=== PATIENT | male | born 1980 | race Caucasian/White ===

== ENCOUNTER 2016-11-20 10:00 | Emergency (ER) | payer OTHER ==
--- NOTE | 2016-11-20 10:48 | EDPHY ---
HPI/HX/ROS/PE/MDM Narrative: CHIEF COMPLAINT: Allergic reaction to medication. HPI: The patient is a 36-year-old male, recently diagnosed with right hand cellulitis, who complains of possible allergic reaction to medication. The patient received IV vancomycin at [facility] in [place] and developed a diffuse red rash. The swelling improved, but ID switched him to Cephalexin. The patient has taken three pills since yesterday. This morning after taking the Cephalexin and Valtrex he developed a rash to both arms, worse on the right. He took two Benadryl which improved the rash. He denies shortness of breath, throat swelling, or chest pain. REVIEW OF SYSTEMS: Aside from elements discussed in the HPI, a comprehensive 10-point review of systems was reviewed and is negative. PMH: Left hand Cellulitis SOCIAL HISTORY: . Lives in [place]. PHYSICAL EXAM: General: Patient is alert, in no acute distress. ENT: Eyes are normal to inspection. ENT inspection normal. Neck: Normal inspection. Full range of motion. Respiratory: No respiratory distress. Breath sounds normal bilaterally. Cardiovascular: Regular rate and rhythm. Strong peripheral pulses. Abdomen: The abdomen is nontender to palpation. There are no peritoneal signs. There are normal bowel sounds. Back: Normal to inspection. No tenderness to palpation. Skin: Mild erythematous rash right to forearms only. No urticaria. Extremities: Normal appearance. Full range of motion. Neuro: Oriented x3. Normal motor function. Normal sensory function. ED Course: I was unable to obtain patient's medical records from [place] where his left hand cellulitis was cultured. Patient's rash has improved after Benadryl prior to arrival. Plan to discharge patient home with strict return precautions. MDM: This patient presents with an exanthematous rash isolated to his right forearm. The etiology of this is unclear. Given appearance and location, this is clearly not typical urticaria so I doubt this represents anaphylaxis. The patient has received IV cephalosporin without incident as an inpatient, and this is day 2-3 of oral Kelfex, which I think makes true cephalosporin allergy unlikely. I considered changing antibiotics, but a new antibiotic would represent the patient's fourth different antibiotic within a few days time frame , which has its own risks of adverse affect. I discussed this in detail with the patient and he is in agreement with the plan to proceed with current prescription and return if rash recurs. General Time Seen by Provider: 11/20/16 10:17 Initial Vital Signs: Initial Vital Signs Temperature (C) 36.7 C 11/20/16 10:01 Heart Rate 50 L 11/20/16 10:01 Respiratory Rate 16 11/20/16 10:01 Blood Pressure 133/85 H 11/20/16 10:01 O2 Sat (%) 100 11/20/16 10:01 O2 Delivery Mode Room Air Allergies/Adverse Reactions: Penicillins Allergy (Unknown, Verified 11/20/16 10:05) as kid Home Medications: Medication Instructions Recorded Cephalexin [Keflex (*)] 500 mg PO 11/20/16 valACYclovir [Valtrex (*)] 500 mg PO 11/20/16 Departure - Departure Disposition: Home, Routine, Self-Care Clinical Impression: Drug rash Condition: Good Instructions: Acute Rash (ED) Additional Instructions: Continue taking Keflex as directed. Return to the Emergency Department if the rash returns or if hand increases in swelling, redness, or pain. You have been referred to a primary care physician below, please followup as necessary. Referrals: Quintin Mora MD [place] [place] - As per Instructions Report Scribed for: Janusz Flores Report Scribed by: Mira Boggs Date of Report: 11/20/16 Time of Report: 10:48 Physician Review and Approval Statement: Portions of this note were transcribed by a medical lab technologist. I personally performed the history, physical exam, and medical decision-making; and confirmed the accuracy of the information in the transcribed note.
[2016-11-20 12:35] VITALS: BP 124/85; PULSE 62; RESP 18; TEMP 98.4; O2SAT 99
== END 2016-11-20 12:34 | disposition home or self-care (01) ==
DX: R21 Rash and other nonspecific skin eruption (principal); T36.8X5A Adverse effect of other systemic antibiotics, initial encounter

== ENCOUNTER 2017-02-13 20:50 | Emergency (ER) | payer OTHER ==
[2017-02-13 20:54] VITALS: BP 156/95; PULSE 69; RESP 16; TEMP 97.9; O2SAT 97
--- NOTE | 2017-02-13 21:51 | EDPHY ---
H & P Time Seen by Provider: 02/13/17 21:47 HPI/ROS: HPI: This is a 36-year-old male who presents with Chief Complaint: Forehead laceration Location: Forehead Quality: Laceration Duration: 30 minutes to 1 hour prior to arrival Signs and Symptoms: No headache, no loss of consciousness, no neck pain, no nausea, no vomiting Timing: Acute Severity: Moderate Context: Patient is that he has been drinking this evening, tripped and fell cement, cutting his forehead. Patient's last tetanus shot within the last 5 years. Modifying Factors: Direct pressure Comment: ROS: Eyes: No blurred vision Respiratory: No shortness of breath, no cough Cardiovascular: No chest pain Gastrointestinal: No nausea, no vomiting no diarrhea Genitourinary: No dysuria Extremities: No myalgias Neurologic: No weakness, no numbness Skin: No rashes Hematologic: No bruising, no bleeding MEDICAL/SURGICAL HISTORY: Generally healthy. Denies surgical history. Social History: Employed. Smoking Status: Never smoked Physical Exam: CONSTITUTIONAL: Appropriate in polite adult white male, awake and alert, no obvious distress HEENT: 1 inch deep c-shaped laceration to the right of midline of his forehead; sparing his eyebrow and medial canthus; superficial abrasion noted on the bridge of his nose; nares patent; no septal hematoma. normocephalic, PERRL, EOMI. Tympanic membranes clear. . Oropharynx clear, no exudate and moist pink mucosa. Airway patent. No lymphadenopathy. No meningismus. Cardiovascular: Normal S1/S2, regular rate, regular rhythm, without murmur rub or gallop. PULMONARY/CHEST: Symmetrical and nontender. Clear to auscultation bilaterally Good air movement. No accessory muscle usage. ABDOMEN: Soft, nondistended, nontender, no rebound, no guarding, no peritoneal signs, no masses or organomegaly. No CVAT. EXTREMITIES: 2/2 pulses, no deformities, no clubbing, no cyanosis or edema. NEUROLOGICAL: no focal neuro deficits. GCS 15. SKIN: Warm and dry, no erythema. no rash. Good capillary refill. Constitutional: Initial Vital Signs Temperature (C) 36.6 C 02/13/17 20:52 Heart Rate 69 02/13/17 20:52 Respiratory Rate 16 02/13/17 20:52 Blood Pressure 156/95 H 02/13/17 20:52 O2 Sat (%) 97 02/13/17 20:52 O2 Delivery Mode Room Air Allergies/Adverse Reactions: Penicillins Allergy (Unknown, Verified 11/20/16 10:05) as kid Sulfa (Sulfonamide Antibiotics) Allergy (Verified 02/13/17 20:52) Home Medications: Medication Instructions Recorded Cephalexin [Keflex (*)] 500 mg PO 11/20/16 valACYclovir [Valtrex (*)] 500 mg PO 11/20/16 Medical Decision Making Procedures: Procedure: Laceration repair. Verbal consent was obtained from the patient. The simple c-shaped deep laceration on the right side of forehead laceration was anesthetized in the usual fashion using 5 mL of 1% lidocaine with epinephrine. The wound was irrigated, draped and explored to its base with a gloved finger. There were no eyebrow or medial canthus structures involved. The wound was repaired with #3 subcuticular simple interrupted, 5-0 Vicryl. No foreign bodies were identified. Good hemostasis was achieved and patient tolerated procedure well. The procedure was performed by myself. ED Course/Re-evaluation: GCS 15. Patient politely declines CT imaging of his head and cervical spine. No loss of consciousness. I believe that this is appropriate not to image. Fall accidental in nature. Tetanus up-to-date. Laceration repair completed with absorbable simple interrupted subcuticular stitches Steri-Strips were placed to ensure good approximation. Written and verbal laceration/wound care instructions were given Differential Diagnosis: Differential diagnosis includes laceration, concussion, contusion. Departure - Departure Disposition: Home, Routine, Self-Care Clinical Impression: Laceration of forehead without complication Qualifiers: Encounter type: initial encounter Qualified Code(s): S01.81XA - Laceration without foreign body of other part of head, initial encounter Accidental fall Qualifiers: Encounter type: initial encounter Qualified Code(s): W19.XXXA - Unspecified fall, initial encounter Condition: Good Instructions: Care For Your Absorbable Stitches (ED), Facial Laceration (ED) Additional Instructions: Do not allow laceration or Steri-Strips to get wet times 48 hours. After 48 hours, may wash with clean soap and water but then pat Steri-Strips dry after bathing. Allow Steri-Strips to fall off on their own in 7-10 days. Referrals: NONE *PRIMARY CARE P,. [Primary Care Provider] - As per Instructions [facility],. [Clinic] - As per Instructions
== END 2017-02-13 22:21 | disposition home or self-care (01) ==
PROC: 0HQ1XZZ Repair Face Skin, External Approach (ICD-10-PCS; principal; 2017-02-13)
DX: S01.81XA Laceration without foreign body of other part of head, initial encounter (principal); W01.198A Fall on same level from slipping, tripping and stumbling with subsequent striking against other object, initial encounter

== ENCOUNTER → 2017-04-29 | Outpatient (CLI) | payer OTHER | LOC: FIMAGING 15:49 | PROVIDERS: ATTEND Physician Assistant | DX: S46.311A Strain of muscle, fascia and tendon of triceps, right arm, initial encounter (principal) ==

== ENCOUNTER 2017-08-27 08:09 | Emergency (ER) | payer OTHER ==
[2017-08-27 08:23] VITALS: RESP 18
--- NOTE | 2017-08-27 08:57 | EDPHY ---
H & P Stated Complaint: increasing anxiety over months/drinks daily to manage anxiety Source: Patient Exam Limitations: No limitations - Personal History Current Tetanus/Diphtheria Vaccine: Yes - Medical/Surgical History Hx Asthma: No Hx Chronic Respiratory Disease: No Hx Diabetes: No Hx Cardiac Disease: No Hx Renal Disease: No Hx Cirrhosis: No Hx Alcoholism: Yes Hx HIV/AIDS: No Hx Splenectomy or Spleen Trauma: No Other PMH: etoh/anxiety - Social History Smoking Status: Never smoked Time Seen by Provider: 08/27/17 08:56 HPI/ROS: HPI: This is a 37-year-old male who presents with Chief Complaint: increasing anxiety over months/drinks daily to manage anxiety Location: psych Quality: anxiety Duration: Months Signs and Symptoms: no auditory and visual command hallucinations, no suicidal ideation with a plan, no homicidal ideation, not paranoid Timing: Worsening over the last 1 week Severity: Moderate to severe Context: Patient has no previous psychiatric history and several months ago he was suit by former client which has caused him great anxiety. He reports that his anxiety has greatly increased over the last week as a trial is heating up and court is nearing in [place]. For the last week he is having daily panic attacks to the point that he was not able to attend court this morning force client. He admits to drinking alcohol nightly in order to deal with his problems and to sleep. Patient reports that he has difficulty falling asleep and then once he is a sleepy has difficulty waking up. He was on the phone as I enter the room talking with his partner whose is a psychologist. She has referred him and obtain appointment with another psychologist on Thursday as well as a psychiatrist later in the week. He has a and 2 small children at home that are very supportive. Modifying Factors: None Comment: ROS: see HPI Constitutional: No fever, no chills, no weight loss Eyes: No blurred vision Respiratory: No shortness of breath, no cough Cardiovascular: No chest pain Gastrointestinal: No nausea, no vomiting, no diarrhea Genitourinary: No dysuria Extremities: No myalgias Neurologic: No weakness, no numbness Skin: No rashes Hematologic: No bruising, no bleeding MEDICAL/SURGICAL/SOCIAL HISTORY: Medical history: Anxiety, alcoholism. Surgical history: Denies Social history: . 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 CONSTITUTIONAL: Slightly anxious well-developed well-nourished adult white male , awake and alert, no obvious distress HEENT: Atraumatic and normocephalic, PERRL, EOMI. Tympanic membranes clear. Oropharynx clear, no exudate and moist pink mucosa. Airway patent. No lymphadenopathy. No meningismus. Cardiovascular: Normal S1/S2, regular rate, regular rhythm, without murmur rub or gallop. PULMONARY/CHEST: Symmetrical and nontender. Clear to auscultation bilaterally. Good air movement. No accessory muscle usage. ABDOMEN: Soft, nondistended, nontender, no rebound, no guarding, no peritoneal signs, no masses or organomegaly. No CVAT. EXTREMITIES: 2/2 pulses, strength 5/5, no deformities, no clubbing, no cyanosis or edema. NEUROLOGICAL: no focal neuro deficits. GCS 15. SKIN: Warm and dry, no erythema. no rash. Good capillary refill. PSYCH: Good eye contact, no flight of ideas, organized thought process, good insight and judgment, no auditory and visual command hallucinations, no suicidal ideation with a plan, no homicidal ideation, not paranoid (Kae Augustin) Constitutional: Initial Vital Signs Temperature (C) 36.9 C 08/27/17 08:20 Heart Rate 58 L 08/27/17 08:20 Respiratory Rate 18 08/27/17 08:20 Blood Pressure 157/86 H 08/27/17 08:20 O2 Sat (%) 98 08/27/17 08:20 O2 Delivery Mode Room Air Allergies/Adverse Reactions: Penicillins Allergy (Unknown, Verified 08/27/17 08:19) as kid Sulfa (Sulfonamide Antibiotics) Allergy (Verified 08/27/17 08:19) Home Medications: Medication Instructions Recorded LORazepam [Ativan] 0.5 mg PO Q8 PRN #12 tablet 08/27/17 Medical Decision Making ED Course/Re-evaluation: Patient does not meet M1 criteria or Detainer. Appears to have some PTSD and associated anxiety and panic attack about court and being sued by former client. Has follow-up on Thursday with psychology and then later in the week with Psychiatry. Will prescribe a few Ativan tabs to get him through until he is seen by behavioral health. This patient was seen under the supervision of my secondary supervising physician. I evaluated care for this patient independently. (Demetria,Terra) I did not see this patient while he was in the emergency department. However his care was discussed with the PA while the patient was in the department. I agree with treatment plan and management (Amilcar Cornejo) Differential Diagnosis: Differential diagnosis includes but is not limited to posttraumatic stress disorder, functional in situational depression, generalized anxiety disorder. (Kae Augustin) Departure - Departure Disposition: Home, Routine, Self-Care Clinical Impression: Generalized anxiety disorder with panic attacks Condition: Good Instructions: Generalized Anxiety Disorder (ED), Alcohol Use Disorder (ED), Panic Attack (ED) Additional Instructions: Please establish care with primary care provider within 1-2 weeks. Keep appointment with Psychologist on Thursday. Use Ativan maximum 1 tablet every 8 hr as needed for severe anxiety. Call 911 if you have thoughts of hurting or killing yourself or anyone else, or have any new or worsening symptoms that concern you. Referrals: Quintin Mora MD [place] [place] - As per Instructions Prescriptions: LORazepam [Ativan] 0.5 mg PO Q8 PRN #12 tablet PRN Reason: Anxiety
[2017-08-27 10:24] VITALS: BP 157/90; PULSE 91; TEMP 98.6; O2SAT 99
== END 2017-08-27 10:18 | disposition home or self-care (01) ==
DX: F41.1 Generalized anxiety disorder (principal); F41.0 Panic disorder [episodic paroxysmal anxiety]